=== PATIENT | male | born 1960 | race Caucasian/White ===

== ENCOUNTER 2021-01-21 06:59 | Emergency (ER) | payer OTHER, SELFPAY ==
[2021-01-21 07:22] VITALS: BP 130/55; PULSE 80; RESP 15; TEMP 36.7; O2SAT 99; BMI 23.2
--- NOTE | 2021-01-21 07:50 | ED.WOUNDLAC ---
HPI - Wound/Laceration General Chief Complaint: Wound/Laceration Stated Complaint: cut right thumb at work Time Seen by Provider: 01/21/21 07:02 Source: patient Mode of arrival: Ambulatory Limitations: no limitations History of Present Illness HPI narrative: 60-year-old gentleman with a history of hypertension, hyperlipidemia, PTSD who works driving a school bus managed to get his right thumb caught under the window with a avulsion type laceration. It does not involve the nail or nail bed. Bleeding does seem to be controlled. Related Data Allergies Allergy/AdvReac Type Severity Reaction Status Date / Time No Known Drug Allergies Allergy Verified 01/21/21 07:18 Review of Systems Review of Systems Narrative: Pertinent positive and negative findings as per HPI Remainder of review of systems is otherwise unremarkable for Constitutional: Fevers, chills, weakness ENT: No sore throat, neck pain, ear pain CV: Chest pain, palpitations, Respiratory: Cough, wheeze, dyspnea GI: Nausea, vomiting, diarrhea, : Dysuria, hematuria, Patient History Medical History Hyperlipidemia Hypertension PTSD (post-traumatic stress disorder) Social History Smoking Status: Never smoker Smoking Status: Never smoker alcohol intake frequency: a few times a week Substance Use Type: does not use Exam Narrative Exam Narrative: General: Alert appropriate in no acute distress Respiratory: Able to speak in full sentences, no obvious respiratory distress Skin: No obvious rashes, warm and dry Neurologic: Grossly intact no obvious asymmetries or abnormalities Psych: appropriate insight and affect, cooperative Extremity: 1 cm avulsion type laceration on the medial some had. Initial Vital Signs Initial Vital Signs: Vital Signs Temperature 98.1 F 01/21/21 07:22 Pulse Rate 80 01/21/21 07:22 Respiratory Rate 15 01/21/21 07:22 Blood Pressure 130/55 L 01/21/21 07:22 Pulse Oximetry 99 01/21/21 07:22 Procedures Laceration Repair thumb: Site: hand Side (If applicable): right Size (cm): 2 Description: other (avulsion) Depth: simple, single layer Local Anesthetic: lidocaine 1% Amount of anesthesia used (mL): 2 Pre-repair: wound explored Skin layer closed with: nylon Size (cm): 3-0 Number of sutures: 2 Technique: horizontal mattress (placed for hemostasis) Course Orders Ordered: Discontinued Medications Acetaminophen (Acetaminophen 325 Mg Tablet) 325 mg PO NOW ONE Stop: 01/21/21 07:59 Last Admin: 01/21/21 08:57 Dose: 325 mg Documented by: CVANCE Ibuprofen (Ibuprofen 400 Mg Tablet) 400 mg PO NOW ONE Stop: 01/21/21 07:59 Last Admin: 01/21/21 08:57 Dose: 400 mg Documented by: CVANCE Lidocaine HCl (Lidocaine 1% (Pf)) 2 ml INJ NOW ONE Stop: 01/21/21 08:10 Vital Signs Vital signs: Vital Signs - 8 hr 01/21/21 07:22 Temperature 98.1 F Pulse Rate 80 Respiratory Rate 15 Blood Pressure 130/55 L Pulse Oximetry 99 MDM - Wound/Laceration MDM Narrative Medical decision making narrative: 60-year-old gentleman with avulsion type laceration to the medial aspect of his right thumb. Hemostatically stable he is up-to-date on his tetanus status. Bleeding is not able to be controlled and sutures are placed for hemostasis. A dressing is applied. Prior to discharge the wound does began bleeding again. It is re-evaluated. 2 cc of lidocaine used to anesthetize the area and a small horizontal mattress stitches used to reduce the size of the wound and provide adequate hemostasis. Dressing is again applied, instructions are given. Suturing is not required at this time. He is safe for home discharge. L and I paperwork is filled out Discharge Plan Departure Patient Disposition: Home Clinical Impression: Laceration Instructions: DI for Minor Laceration Activity Restrictions/Additional Instructions: Thank you for coming in today You did manage to slice off a bit of your thumb. Needed 2 stitches to close the wound up enough so that it will heal nicely and there is no additional bleeding. The stitches need to come out in about 7 days, on or about January 28. Please keep a dressing over it. Useing a bit of antibiotic ointment until the scab is a bit more solid will be helpful. If you do notice signs or symptoms of infection, you do need to return. I hope you heal quickly
[2021-01-21] MEDS: ACETAMINOPHEN 325 MG TABLET PO (08:57)
[2021-01-21] MEDS: IBUPROFEN 400 MG TABLET PO (08:57)
== END 2021-01-21 09:02 | disposition home or self-care (01) ==
PROVIDERS: Emergency Provider Emergency Medicine
DX: S61.011A Laceration without foreign body of right thumb without damage to nail, initial encounter (principal); W23.0XXA Caught, crushed, jammed, or pinched between moving objects, initial encounter; Y99.0 Civilian activity done for income or pay
CPT/HCPCS: 12001; 99283

== ENCOUNTER 2021-01-29 12:41 | Emergency (ER) | payer OTHER, SELFPAY ==
[2021-01-29 12:50] VITALS: BP 128/79; PULSE 86; RESP 18; TEMP 37; O2SAT 98; BMI 22.9
--- NOTE | 2021-01-29 13:37 | ED_ITS ---
HPI - Recheck/Abnormal Lab/Rx General Chief Complaint: Recheck/Abnormal Lab/Rx Stated Complaint: need stiches out Time Seen by Provider: 01/29/21 13:07 Source: patient Mode of arrival: Ambulatory Limitations: no limitations History of Present Illness HPI narrative: This is a 60-year-old male who comes for removal of sutures In his right thumb. 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 He states there was some tissue loss at the time. He had sutures placed when wound continued to have bleeding in order to achieve hemostasis. Patient states the area have been healing well. No purulent drainage, warmth, redness or signs of infection. Related Data Allergies Allergy/AdvReac Type Severity Reaction Status Date / Time No Known Drug Allergies Allergy Verified 01/29/21 13:02 Review of Systems Review of Systems ROS Unobtainable: All systems reviewed & are unremarkable except as noted in HPI and below Patient History Medical History Hyperlipidemia Hypertension PTSD (post-traumatic stress disorder) Social History Smoking Status: Never smoker Smoking Status: Never smoker alcohol intake frequency: a few times a week Substance Use Type: does not use Exam Narrative Exam Narrative: GENERAL: Alert and oriented x three, Well-nourished male in mild distress. HEENT: Head normocephalic, atraumatic, EOMI, pupils reactive, face symmetric, moist mucous membranes SKIN: Warm, dry, no petechiae, no rashes or lesions. Patient has a healing wound on the distal end of the thumb adjacent to the nail. Nail is intact. Patient has what appears to be 3 sutures present. there is no warmth, erythema or purulent drainage. Area is nontender to touch except right over the open healing portion. Initial Vital Signs Initial Vital Signs: Vital Signs Temperature 98.6 F 01/29/21 12:50 Pulse Rate 86 01/29/21 12:50 Respiratory Rate 18 01/29/21 12:50 Blood Pressure 128/79 01/29/21 12:50 Pulse Oximetry 98 01/29/21 12:50 Course Vital Signs Vital signs: Vital Signs - 8 hr 01/29/21 12:50 Temperature 98.6 F Pulse Rate 86 Respiratory Rate 18 Blood Pressure 128/79 Pulse Oximetry 98 Discharge Plan Departure Patient Disposition: Home Clinical Impression: Encounter for removal of sutures Instructions: DI for Suture Removal Activity Restrictions/Additional Instructions: Follow-up with your physician in the next 1-2 weeks if you are not continuing to have healing of the site. Wound Care: Keep wound(s) clean and dry. Wash daily with soap and water only, Pat dry afterwards. Do not use over the counter products (alcohol or peroxide)on the wounds unless instructed by a physician. If wound condition worsens (increased/expanding redness, developing fluid blisters, or worsening pain), either contact your doctor for an urgent re- assessment , or return to the Emergency Department. Return if fever greater than 100.4 Fahrenheit, increased swelling, increasing pain or worsening symptoms such as increased discharge or spreading redness. Referrals: Miscellaneous,[facility] [Primary Care Provider] -
== END 2021-01-29 13:50 | disposition home or self-care (01) ==
PROVIDERS: Emergency Provider Emergency Medicine
DX: Z48.02 Encounter for removal of sutures (principal); Y99.0 Civilian activity done for income or pay
CPT/HCPCS: 99281

== ENCOUNTER 2022-09-15 11:02 | Day surgery (SDC) | payer OTHER, SELFPAY ==
[2022-09-13 08:31] VITALS: BMI 24.3
[2022-09-15] VITALS (7 sets, daily range): BP systolic 116–149; BP diastolic 67–89; PULSE 55–80; RESP 16–18; TEMP 36.1–36.6; O2SAT 100; BMI 24.3
[2022-09-15] MEDS: LACTATED RINGERS 1,000 ML 100 ML IV ×2 (12:01→13:04)
--- NOTE | 2022-09-15 12:40 | PM.PREOP ---
Pre-operative Note Interval Note History & Physical reviewed/Exam performed by Physician: Yes Changes to H&P: No
[2022-09-15] MEDS: CEFAZOLIN 2 GM/100 ML PREMIX 100 ML IV (12:54)
--- NOTE | 2022-09-15 12:55 | SUR.OPER ---
Supine on padded OR bed, head on pillow, arms secured on padded arm boards at <90 degrees abduction, legs uncrossed, safety belt at thigh, tape over blanket over lower legs. Pt positioned per direction and supervision of Dr Woods.
[2022-09-15] MEDS: BUPIVACAINE 0.5% W/ EPI (PF) 30 ML VIAL INJ (12:57)
--- NOTE | 2022-09-15 13:53 | PM.OP.1 ---
Operative Date/Time/Diagnoses Date of procedure: 09/15/22 Time of procedure: 13:53 Pre-op diagnosis: Left inguinal hernia Post-op diagnosis: same Procedure & Clinicians Procedure: Open left inguinal hernia repair with mesh Same procedure as scheduled: Yes Indications: Symptomatic reducible inguinal hernia Surgeon: Aidan Russo Yes if Unassisted: Yes Anesthesia Type: General Operative Notes Findings: Direct floor defect and indirect hernia Specimen(s): none sent Estimated Blood Loss (mL): 20 Procedure in detail: The patient was placed supine on the table and bilateral lower extremity compression devices were applied. Anesthesia was induced they were intubated with an LMA and received Ancef. A time-out was performed. They were prepped and draped in sterile fashion. The left external inguinal ring and the anterior superior iliac crest were identified and marked. 1 finger breath above the inguinal ligament the skin was infiltrated with 0.25% bupivacaine. The skin incision was made, the subcutaneous tissues were divided with electrocautery exposing the external oblique aponeurosis which was then opened along the direction of its fibers. Using blunt dissection the internal oblique aporneurosis was from the external oblique upper leaflet. The cord was carefully dissected away from the inguinal canal adjacent to the pubic tubercle. The cord including the vas deferens, testicular bloody supply, ilioguinal and genital nerve were encircled with a Leggett drain. A direct floor defect was identified and it was reduced into the abdomen. The cremasteric fibers surrounding the cord were divided adjacent to the internal ring. The vas deferens and the testicular vessels were preserved and protected. The cord contents were carefully explored. There was a small indirect hernia on the anterior medial aspect of the cord which was skeletonized away from the vas deferens and testicular blood supply. The indirect hernia was skeletonized back to the internal ring but it did not spontaneously into the abdomen. Sac was ligated with Vicryl suture and excised the remnant reduced into the abdomen. A 7x 15 cm lightweight Bard Pro Loop hernia mesh was anchored to the insertion of the rectus muscle at the pubic tubercle such that there was approximately 2 cm of tubercle overlap with Ethibond. The inferior edge of the mesh was secured to the shelving edge of the inguinal ligament using Ethibond. Interrupted 3 0 Vicryl suture was used to anchor the superior aspect of the mesh to the conjoined tendon in several places. The tails were then reapproximated loosely around the spermatic cord. The tails of the mesh were then tucked under the external oblique aponeurosis. The repair was checked for hemostasis. The wound was irrigated with sterile saline. The external oblique aponeurosis was reapproximated in a running fashion using 3 0 Vicryl. The subcutaneous tissues were reapproximated with 3 0 Vicryl skin closed with 4 0 Monocryl followed by the application of Dermabond. At the end of the operation I ensured that both testicles were within the scrotum. The sponge instrument count at the end operation was correct. The patient emerged from anesthesia was extubated and transferred to the postoperative care unit in stable condition. A total of 30 ml of of 0.25% bupivicaine was used to infiltrate the skin. Complications: none Post-operative Condition: stable Disposition: same day surgery
--- NOTE | 2022-09-15 15:24 | SUR.PHASEII ---
1430 - ready for discharge. Pt states ride won't be here till 5pm. 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 rests quitely in bed.
[2022-09-15] MEDS: OXYCODONE IR 5 MG TABLET PO (15:34)
--- NOTE | 2022-09-15 16:28 | SUR.PHASEII ---
1625 - cont's to wait on ride. No complaints voiced. talking on cell phone.
== END 2022-09-15 17:20 | disposition home or self-care (01) ==
PROVIDERS: PCP Student in an Organized Health Care Education/Training Program; Referring Provider Surgery; Visit Provider Surgery
PROC: (CPT 49505; principal; 2022-09-15 12:30)
DX: K40.90 Unilateral inguinal hernia, without obstruction or gangrene, not specified as recurrent (principal)
CPT/HCPCS: 49505; 82962; J0690; J1885; J2250; J2405; J2704; J3010